=== PATIENT | female | born 2000 | race Caucasian/White ===

== ENCOUNTER 2019-07-11 20:20 | Emergency (ER) | payer OTHER ==
[2019-07-11 20:36] VITALS: BP 140/98
[2019-07-11 21:12] LABS: Influenza A Molecular NEGATIVE (Negative); Influenza B Molecular NEGATIVE (Negative)
--- NOTE | 2019-07-11 21:19 | UC ---
HPI Febrile Illness - HPI Summary HPI Summary: Fever, chills, body aches, for 2 days, today 102.8. Had tylenol which helped but still feels feverish. denies any other symptoms. has had unprotected intercourse w/in 6 mo. able to drink fluids and urinate normally. - History of Current Complaint Chief Complaint: UCGeneralIllness Time Seen by Provider: 07/11/19 20:39 Hx Last Menstrual Period: current Pain Intensity: 3 Pain Scale Used: 0-10 Numeric Aggravating Factors: Nothing Alleviating Factors: Nothing Associated Signs and Symptoms: Chills, Myalgia - Allergy/Home Medications Allergies/Adverse Reactions: Allergies Allergy/AdvReac Type Severity Reaction Status Date / Time cetirizine [From [facility]] Allergy Rash Verified 07/11/19 20:36 vancomycin Allergy GI Upset Verified 07/11/19 20:36 Home Medications: Home Medications Acetaminophen TAB* [Tylenol TAB*] 650 mg PO Q4H PRN MDD fever 07/11/19 [History Confirmed 07/11/19] Control 1 tab PO DAILY 07/11/19 [History Confirmed 07/11/19] PMH/Surg Hx/FS Hx/Imm Hx - Additional Past Medical History Additional PMH: NO CHRONIC ILLNESS Previously Healthy: Yes - Surgical History Surgical History: Yes Surgery Procedure, Year, and Place: uterinecele - Family History Known Family History: Positive: Non-Contributory - Social History Alcohol Use: Occasionally Substance Use Type: None Smoking Status (MU): Never Smoked Tobacco Review of Systems All Other Systems Reviewed And Are Negative: Yes Constitutional: Positive: Fever, Chills, Fatigue Skin: Negative: Rash ENT: Negative: Dental Pain, Sore Throat, Ear Ache Respiratory: Negative: Cough Gastrointestinal: Negative: Abdominal Pain, Vomiting, Diarrhea Genitourinary: Negative: Dysuria Musculoskeletal: Positive: Myalgia. Negative: Arthralgia Neurological: Negative: Headache, Weakness Physical Exam Triage Information Reviewed: Yes Appearance: Well-Appearing, Other: - FLUSHED CHEEKS/EARS Vital Signs: Initial Vital Signs Temp 96.6 F 07/11/19 20:32 Pulse 102 07/11/19 20:32 Resp 16 07/11/19 20:32 BP 140/98 07/11/19 20:32 Pulse Ox 97 07/11/19 20:32 Vital Signs Reviewed: Yes ENT: Positive: Pharynx normal, TMs normal, Uvula midline Neck: Positive: Supple, Nontender, Enlarged Nodes @ - R POST. SINGULAR Respiratory Exam: Normal Cardiovascular Exam: Normal Skin: Negative: Rashes Course/Dx - Course Course Of Treatment: fEVER, MYALGIA x3 days. With lymphadenopathy and fevers for 3 days and very little symptoms we tried ruling out flu which was neg. Will r/o HIV (hx of unprotected sex in the past 6 mo), mono. She will f/u w/ [facility] if all these are neg. and fevers persist. For now we will call this viral and we disc ways to manage this. - Febrile Illness Differential Diagnoses: Fever of Unknown Origin, Viremia, Other: - Diagnoses Provider Diagnosis: Viral illness Discharge ED - Sign-Out/Discharge Documenting (check all that apply): Patient Departure All imaging exams completed and their final reports reviewed: No Studies - Discharge Plan Condition: Good Disposition: HOME Patient Education Materials: Viral Syndrome (ED) Referrals: No Primary Care Phys,NOPCP [Primary Care Provider] - Additional Instructions: Please follow up with [facility] if fevers persists. - Billing Disposition and Condition Condition: GOOD Disposition: Home - Attestation Statements Provider Attestation: Per institutional requirements, I have reviewed the chart, however, I was not consulted specifically or made aware of this patient by the midlevel provider. I did not personally evaluate, interact with , or disposition this patient.
[2019-07-12 11:19] LABS: Hematocrit 38 % (35-47); Hemoglobin 13.4 g/dL (12.0-16.0); Mean Corpuscular HGB Conc 36 g/dL (31-36); Mean Corpuscular Hemoglobin 32 pg (27-31); Mean Corpuscular Volume 89 fL (80-97); Mean Platelet Volume 10.2 fL (7.4-10.4); Platelet Count 164 10^3/uL (150-450); Red Blood Count 4.24 10^6 /uL (3.70-4.87); Red Cell Distribution Width 13 % (10-15); White Blood Count 3.7 10^3/uL (3.5-10.8)
[2019-07-12 12:18] LABS: HIV 4th Generation Nonreactive (Nonreactive)
[2019-07-12 13:11] LABS: ABS Monocytes 0.4 10^3/ul (0-0.8); ABS Neutrophils 2.3 10^3/ul (1.5-7.7); Eosinophil % 0.1 %; Lymphocyte % 27.3 %; Nucleated Red Blood Cells % 0.3
== END 2019-07-11 21:32 | disposition home or self-care (01) ==
LOC: UCEAST 20:20
DX: B34.9 Viral infection, unspecified (principal); M79.10 Myalgia, unspecified site; R59.0 Localized enlarged lymph nodes; Z88.8 Allergy status to other drugs, medicaments and biological substances; Z88.1 Allergy status to other antibiotic agents
CPT/HCPCS: 36415; 85025; 85060; 86308; 87389; 99201; G0463